=== PATIENT | male | born 1985 | race Hispanic/Latino ===

== ENCOUNTER 2017-01-18 19:10 | Emergency (ER) | payer OTHER ==
[2017-01-18 19:20] VITALS: BMI 26.9
[2017-01-18] MEDS ORDERED: Sodium Chloride 0.9% 1,000 ML IV STA ×2 (19:53→22:50)
--- NOTE | 2017-01-18 19:57 | ED PDOC ---
Arrival/HPI - General Chief Complaint: GI Problem Time Seen by Provider: 01/18/17 19:39 Historian: Patient - History of Present Illness Narrative History of Present Illness (Text): 01/18/17 19:57 31 year old male whose past medical history includes thyroid cancer, on Levothyroxin, presents with complaint of nausea, vomiting, and abdominal discomfort for the past day. Patient without any fever or chills. No chest pain , shortness of breath, or diarrhea. Patient is unsure if something he ate made him sick. Time/Duration: 24 hours Symptom Onset: Sudden Symptom Course: Unchanged Modifying Factors (Text): None Associated Symptoms (Text): None Past Medical History - Provider Review Nursing Documentation Reviewed: Yes - Infectious Disease Hx of Infectious Diseases: None - Cardiac Hx Mitral Valve Prolapse: No - Pulmonary Hx Respiratory Disorders: No - Neurological Hx Neurological Disorder: No - HEENT Hx HEENT Disorder: No - Renal Hx Renal Disorder: No - Endocrine/Metabolic Hx Endocrine Disorders: Yes Hx Hypothyroidism: Yes Other/Comment: thyroid cancer - Hematological/Oncological Hx Blood Disorders: No - Integumentary Hx Dermatological Disorder: No - Musculoskeletal/Rheumatological Hx Musculoskeletal Disorders: No - Gastrointestinal Hx Gastrointestinal Disorders: No - Genitourinary/Gynecological Hx Genitourinary Disorders: No - Psychiatric Hx Psychophysiologic Disorder: Yes Hx Anxiety: Yes Hx Substance Use: Yes ("weed") - Surgical History Hx Thyroidectomy: Yes - Anesthesia Hx Anesthesia: Yes Hx Anesthesia Reactions: No Family/Social History - Physician Review Nursing Documentation Reviewed: Yes Family/Social History: Unknown Family HX Smoking Status: Never Smoked Hx Alcohol Use: Yes Frequency of alcohol use: Socially Hx Substance Use: Yes ("weed") Allergies/Home Meds Allergies/Adverse Reactions: Allergies No Known Allergies Allergy (Verified 01/18/17 19:20) Home Medications: Home Meds Medication Instructions Recorded Confirmed Levothyroxine [Synthroid] 150 mcg PO DAILY 01/18/17 01/18/17 Review of Systems - Physician Review All systems were reviewed & negative as marked: Yes - Review of Systems Constitutional: Other (No chills). absent: Fevers Respiratory: absent: SOB Cardiovascular: absent: Chest Pain Gastrointestinal: Abdominal Pain, Nausea, Vomiting. absent: Diarrhea Physical Exam Vital Signs Reviewed: Yes Vital Signs Temp Pulse Resp BP Pulse Ox 01/18/17 23:16 100.4 F H 01/18/17 22:42 100.4 F H 92 H 18 118/52 L 99 01/18/17 19:24 99.0 F 112 H 19 125/86 97 Temperature: Afebrile Blood Pressure: Normal Pulse: Tachycardic Respiratory Rate: Normal Appearance: Positive for: Well-Appearing, Non-Toxic, Comfortable Pain Distress: None Mental Status: Positive for: Alert and Oriented X 3 - Systems Exam Head: Present: Atraumatic, Normocephalic Pupils: Present: PERRL Extroacular Muscles: Present: EOMI Conjunctiva: Present: Normal Mouth: Present: Moist Mucous Membranes Pharnyx: Present: Normal Nose (External): Present: Atraumatic Neck: Present: Normal Range of Motion, Other (Supple) Respiratory/Chest: Present: Clear to Auscultation, Good Air Exchange. No: Respiratory Distress, Accessory Muscle Use Cardiovascular: Present: Regular Rate and Rhythm, Normal S1, S2. No: Murmurs Abdomen: Present: Normal Bowel Sounds. No: Tenderness, Distention, Peritoneal Signs Back: Present: Normal Inspection Upper Extremity: Present: Normal Inspection. No: Cyanosis, Edema Lower Extremity: Present: Normal Inspection. No: Edema Neurological: Present: GCS=15, CN II-XII Intact, Speech Normal Skin: Present: Warm, Dry, Normal Color. No: Rashes Psychiatric: Present: Alert, Oriented x 3, Normal Insight, Normal Concentration Medical Decision Making ED Course and Treatment: Impression: 31 year old male whose past medical history includes thyroid cancer , on Levothyroxin, presents with complaint of nausea, vomiting, and abdominal discomfort for the past day. Differential Diagnosis included but are not limited to: Gastroenteritis Plan: -- Labs -- Pepcid, Zofran, IV fluids -- Reassess and disposition Progress Notes: - Lab Interpretations Lab Results: 01/18/17 20:20 01/18/17 20:20 Lab Results 01/19/17 00:22: pO2 157 H, VBG pH 7.41, VBG pCO2 36.0 L, VBG HCO3 22.8, VBG Total CO2 23.9, VBG O2 Sat (Calc) 99.2 H, VBG Base Excess -1.4 L, VBG Potassium 4.1, Sodium 137.0, Chloride 109.0 H, Glucose 118 H, Lactate 1.8, FiO2 21.0, Venous Blood Potassium 4.1 01/18/17 20:20: pO2 224 H, VBG pH 7.41, VBG pCO2 37.0 L, VBG HCO3 23.5, VBG Total CO2 24.6, VBG O2 Sat (Calc) 99.5 H, VBG Base Excess -0.8 L, VBG Potassium 4.0, Sodium 136.0, Chloride 108.0 H, Glucose 134 H, Lactate 2.9 H, FiO2 21.0, Venous Blood Potassium 4.0 01/18/17 20:20: WBC 10.8, RBC 4.90, Hgb 14.6, Hct 41.8 L, MCV 85.3, MCH 29.8, MCHC 34.9, RDW 13.1, Plt Count 184, MPV 9.5 01/18/17 20:20: Sodium 138, Chloride 102, Potassium 4.2, Carbon Dioxide 22, Anion Gap 18, BUN 17, Creatinine 0.9, Est GFR ( Amer) > 60, Est GFR (Non- Af Amer) > 60, Random Glucose 124 H, Calcium 9.1, Total Bilirubin 0.9, AST 34, ALT 37, Alkaline Phosphatase 48, Total Protein 7.7, Albumin 4.3, Globulin 3.3, Albumin/Globulin Ratio 1.3, Lipase 30 - RAD Interpretation Radiology Orders: 01/18/17 22:51 ABD & PELVIS IV CONTRAST ONLY [CT] Stat - Medication Orders Current Medication Orders: Discontinued Medications Acetaminophen (Tylenol 325mg Tab) 650 mg PO STAT STA Stop: 01/18/17 22:51 Last Admin: 01/18/17 23:16 Dose: 650 mg Famotidine (Pepcid) 20 mg IVP STAT STA Stop: 01/18/17 19:54 Last Admin: 01/18/17 20:28 Dose: 20 mg Sodium Chloride (Sodium Chloride 0.9%) 1,000 mls @ 999 mls/hr IV .Q1H1M STA Stop: 01/18/17 20:53 Last Admin: 01/18/17 20:28 Dose: 999 mls/hr Sodium Chloride (Sodium Chloride 0.9%) 1,000 mls @ 999 mls/hr IV .Q1H1M STA Stop: 01/18/17 23:50 Last Admin: 01/18/17 23:16 Dose: 999 mls/hr Iohexol (Omnipaque 350 100 Ml) Confirm Administered Dose 350 mg .ROUTE .STK-MED ONE Stop: 01/18/17 23:09 Ondansetron HCl (Zofran Inj) 4 mg IVP ONCE ONE Stop: 01/18/17 19:54 Last Admin: 01/18/17 20:29 Dose: 4 mg Ondansetron HCl (Zofran Inj) 4 mg IVP ONCE ONE Stop: 01/18/17 22:51 Last Admin: 01/18/17 23:16 Dose: 4 mg - Scribe Statement The provider has reviewed the documentation as recorded by the Srini Maxwell Provider Scribe Attestation: All medical record entries made by the Srini were at my direction and personally dictated by me. I have reviewed the chart and agree that the record accurately reflects my personal performance of the history, physical exam, medical decision making, and the department course for this patient. I have also personally directed, reviewed, and agree with the discharge instructions and disposition. Disposition/Present on Arrival - Present on Arrival Any Indicators Present on Arrival: No History of DVT/PE: No History of Uncontrolled Diabetes: No Urinary Catheter: No History of Decub. Ulcer: No History Surgical Site Infection Following: None - Disposition Have Diagnosis and Disposition been Completed?: Yes Diagnosis: Gastritis Disposition Time: 05:00 Condition: GOOD
[2017-01-18 20:39] LABS: HEMATOCRIT 41.8 % (42.0-52.0); MEAN CELL VOLUME 85.3 fL (80.0-105.0); MEAN CORPUSCULAR HEMOGLOBIN 29.8 pg (25.0-35.0); MEAN CORPUSCULAR HGB CONC 34.9 g/dl (31.0-37.0); MEAN PLATELET VOLUME 9.5 fl (7.0-11.0); RED CELL DISTRIBUTION WIDTH 13.1 % (11.5-14.5); WHITE BLOOD COUNT 10.8 10^3/ul (4.5-11.0)
[2017-01-18 20:41] LABS: VENOUS BLOOD GAS BASE EXCESS -0.8 mmol/L (0.0-2.0); VENOUS BLOOD PH 7.41 (7.32-7.43)
[2017-01-18 20:52] LABS: ALB/GLOB RATIO 1.3 (1.1-1.8); ALKALINE PHOSPHATASE 48 U/L (38-133); ALT/SGPT 37 U/L (7-56); AST/SGOT 34 U/L (15-59); BILIRUBIN,TOTAL 0.9 mg/dL (0.2-1.3); BLOOD UREA NITROGEN 17 mg/dL (7-21); CALCIUM 9.1 mg/dL (8.4-10.5); CARBON DIOXIDE 22 mmol/L (21-33); CHLORIDE 102 mmol/L (98-107); GFR AFRICAN-AMERICAN > 60; GLUCOSE,RANDOM 124 mg/dL (70-110); LIPASE 30 U/L (23-300); POTASSIUM 4.2 mmol/L (3.6-5.0); SODIUM 138 mmol/L (132-148); TOTAL PROTEIN 7.7 g/dL (5.8-8.3)
[2017-01-18 22:44] VITALS: BP 118/52; PULSE 92; RESP 18; TEMP 100.4; O2SAT 99
[2017-01-18] MEDS ORDERED: Iohexol 350 MG/100 ML VIAL ONE (23:08)
[2017-01-19 00:51] LABS: VENOUS BLOOD GAS BASE EXCESS -1.4 mmol/L (0.0-2.0); VENOUS BLOOD PH 7.41 (7.32-7.43)
--- NOTE | 2017-01-19 01:42 | CT ---
EXAM: CT Abdomen and Pelvis With Intravenous Contrast CLINICAL HISTORY: 31 years old, male; Pain; Abdominal pain TECHNIQUE: Axial computed tomography images of the abdomen and pelvis with intravenous contrast. This CT exam was performed using one or more of the following dose reduction techniques: automated exposure control, adjustment of the mA and/or kV according to patient size, and/or use of iterative reconstruction technique. Coronal and sagittal reformatted images were created and reviewed. CONTRAST: 150 mL of administered intravenously. EXAM DATE/TIME: 01/18/2017 10:51 PM COMPARISON: There are no prior studies for comparison. FINDINGS: Lower thorax: Heart size is normal. Lung bases are clear ABDOMEN: Liver: There is mild fatty infiltration of the liver. Gallbladder and bile ducts: unremarkable Pancreas: unremarkable Spleen: Spleen is unremarkable. There is an accessory spleen in the left upper quadrant. Adrenals: unremarkable Kidneys and ureters: unremarkable Stomach and bowel: Stomach is partially distended. Rotation is normal. Small bowel is mildly distended with fluid and air. There is no obstruction. Cecum is low in the pelvis in the midline. Appendix is unremarkable. Terminal ileum is unremarkable. There are air-fluid levels in the right colon. There is minimal diverticulosis Appendix: See stomach and bowel PELVIS: Bladder: unremarkable Reproductive: Seminal vesicles and prostate are unremarkable. ABDOMEN and PELVIS: Intraperitoneal space: There is no free air or free fluid. Bones/joints: There is L5 spondylolysis. There is minimal spondylolisthesis L5 on S1. There is mild L5-S1 disc bulging. Soft tissues: unremarkable Vasculature: There is a phlebolith in the left pelvis. Lymph nodes: There is shotty para-aortic adenopathy IMPRESSION: No acute solid visceral abnormality; possible ileus, no obstruction, no CT findings of appendicitis or diverticulitis
== END 2017-01-19 22:33 | disposition home or self-care (01) ==
LOC: ED 19:10
DX: K29.70 Gastritis, unspecified, without bleeding (principal)
CPT/HCPCS: 74177; 80053; 82803; 83690; 85027; 96374; 96375; 96376; 99281; J2405; J7040; Q9967